=== PATIENT | female | born 1955 | race Caucasian/White ===

== ENCOUNTER 2016-11-21 12:29 | Inpatient (IN) | payer MEDICARE, MEDICAID ==
[~2016-11-21] VITALS: Ht 162.6 cm; Wt 78.5 kg
[~2016-11-21 12:29] MED LIST: AMLO5TAB4 PO; ARIP5TAB4 PO; ASPI81TA2 PO; CARV6.25 PO; DICL25TA10 PO; FERR325T6 PO; FOLI1TAB16 PO; GABA100C PO; HYDR-3326 PO; LISI-657 PO; LORA-258 PO; SERT50TA PO; SIMV20TA2 PO; ZOLP10TA2 PO
--- NOTE | 2016-11-21 12:31 | NUR ---
CALLED IN THE WAITING ROOM, PATIENT IS NOT AROUND.
--- NOTE | 2016-11-21 12:34 | NUR ---
PT CALLED, NO ANSWER
--- NOTE | 2016-11-21 12:42 | NUR ---
CALLED AGAIN; NO ANSWER.
--- NOTE | 2016-11-21 13:10 | NUR ---
PT BIB SELF C/O CHRONIC LOW BACK PAIN, WORSE TODAY, AND SI WITHOUT A PLAN. DENIES HI. RESP EVEN UNLABORED. SKIN WARM NONDIAPHORETIC. AMBULATORY WITH WALKER, WHICH IS BASELINE. CONTRACTS FOR SAFETY. IN ER BED 11.
[2016-11-21 13:49] LABS: CALCIUM, SERUM 9.2 mg/dL (8.5-10.1); CREATININE 0.8 mg/dL (0.6-1.3); POTASSIUM 4.3 mmol/L (3.5-5.1)
--- NOTE | 2016-11-21 13:51 | NUR ---
PT AT XRAY
[2016-11-21 14:08] LABS: BASOPHILS # (AUTO) 0.1 /CMM (0.0-0.2); EOSINOPHILS # (AUTO) 0.3 /CMM (0.0-0.7); EOSINOPHILS % (AUTO) 3.9 % (0.0-6.0); HEMATOCRIT 34 % (33-45); HEMOGLOBIN 11.4 g/dL (11.5-14.8); LYMPHOCYTES # (AUTO) 2.4 /CMM (0.8-4.8); LYMPHOCYTES % (AUTO) 29.4 % (20.0-44.0); MEAN CORPUSCULAR HEMOGLOBIN 33 PG (26.0-33.0); MEAN CORPUSCULAR HGB CONC 34 g/dl (31.0-36.0); MEAN CORPUSCULAR VOLUME 96 fL (82-100); MONOCYTES # (AUTO) 0.3 /CMM (0.1-1.30); MONOCYTES % (AUTO) 3.8 % (2.0-12.0); NEUTROPHILS % (AUTO) 61.9 % (43.0-81.0); PLATELET COUNT (AUTO) 260 /CMM (150-450); RDW COEFFICIENT OF VARIATION 13.6 (11.5-15.0); RED BLOOD CELL COUNT(AUTO) 3.51 MIL/uL (4.0-5.2)
[2016-11-21] MEDS ORDERED: HYDROCODONE/APAP 5/325MG 1 EACH TABLET ONE (14:19)
[2016-11-21] MEDS ORDERED: HYDROCODONE/APAP 5/325MG 1 EACH TABLET PO ONE (14:30)
--- NOTE | 2016-11-21 14:30 | NUR ---
PT SAT AND BEDPAN AND REPORTS THAT SHE URINATED; NO PEE IN BEDPAN. PER MD, PERFORM IN AND OUT CATH FOR URINE.
[2016-11-21 14:50] LABS: APPEARANCE,URINE Clear (CLEAR); BILIRUBIN,URINE Negative (NEGATIVE); BLOOD, URINE Trace-intact Ery/uL (NEGATIVE); COLOR,URINE Yellow (YELLOW); KETONES,URINE Trace (NEGATIVE); LEUKOCYTE ESTERASE ,URINE Moderate (NEGATIVE); NITRITE, URINE Positive (NEGATIVE); PROTEIN,URINE 30 mg/dl (NEGATIVE); UGLUCOSE Negative (NEGATIVE)
[2016-11-21 14:57] LABS: ADD URINE CULTURE YES; BACTERIA,URINE 1+ /HPF (None Seen); SQUAMOUS EPITHELIAL CELL,UR Few /HPF (None Seen); URINE AMORPHOUS PHOSPHATES Few /HPF (None Seen)
--- NOTE | 2016-11-21 15:21 | NUR ---
ART CALLED FOR PSYCH EVAL. SON AT BEDSIDE.
[2016-11-21] MEDS ORDERED: CIPROFLOXACIN HCL 250 MG TABLET PO ONE (15:30)
--- NOTE | 2016-11-21 16:22 | NUR ---
ART AT BEDSIDE
[2016-11-21] MEDS ORDERED: CIPROFLOXACIN HCL 500 MG TABLET ONE (16:31)
[2016-11-21] MEDS ORDERED: LORAZEPAM 1 MG TABLET ONE (18:34)
--- NOTE | 2016-11-21 18:40 | NUR ---
PT CONTINUES TO C/O ANXIETYY. ORDER FOR 1MG ATIVAN PO RECEIVED AND ADMINISTERED. NAD NOTED. VSS.
[2016-11-21] MEDS ORDERED: LORAZEPAM 1 MG TABLET PO ONE (19:00)
[2016-11-21] MEDS ORDERED: METF500T4 PO (19:06)
[2016-11-21] MEDS ORDERED: FAMO20TA8 PO (19:06)
[2016-11-21] MEDS ORDERED: QUET200T PO (19:06)
--- NOTE | 2016-11-21 19:09 | NUR ---
PT NOW RESTING CALMLY IN BED. ALL NEEDS ATTENDED TO.
--- NOTE | 2016-11-21 19:48 | NUR ---
REPORT GIVEN TO JULIANNA RN FOR ADMISSION
--- NOTE | 2016-11-21 20:13 | NUR ---
PT TRANSPORTED TO 218 IN STABLE CONDITION
--- NOTE | 2016-11-21 20:15 | NUR ---
[employer] ADVISOR NOTES: ADMITTED A 61 YO FEMALE FROM HOME ON VOLUNTARY HOLD. PATIENT CAME FROM [facility]. PER REPORT GIVEN BY JOSEPHINE FAIRCHILD PATIENT HAS BEEN HAVING CHRONIC LOWER BACK PAIN AND WANTING TO KILL HERSELF. THE PATIENT HOWEVER DOES NOT HAVE ANY SPECIFIC PLAN OF HURTING HERSELF. PATIENT USHERED TO HER BED. BELONGINGS AND CONTRABAND CHECKED. SHE WAS THEN ORIENTED TO ROOM, UNIT, STAFF, POLICIES, CARE PLAN AND DOCTORS. UPON INITIAL ASSESSMENT, PATIENT IS ALERT AND ORIENTED X3-4. SHE APPEARS DISHEVELED, DEPRESSED, ANXIOUS, UNKEMPT, ATTENTION SEEKING BUT CALM AND COOPERATIVE DURING THE ADMISSION PROCESS. PER PATIENT SHE WAS ADMITTED AT A [facility] AND WAS LATER MOVED HERE IN [place]. SHE INFORMS THE NURSE SOME OF HER MEDICAL HISTORY. SHE CLAIMED THAT SHE HAS A PACEMAKER ON THE LEFT UPPER CHEST WALL, THAT SHE'S DIABETIC, THAT SHE HAD SURGERY A COUPLE OF YEARS AGO-CHOLECYSTECTOMY. MEDICAL PAPERS SHOWED THAT PATIENT HAS THE FOLLOWING HISTORY- HYPERLIPIDEMIA, TYPE 2 DM, ESSENTIAL HYPERTENSION, PRESENCE OF CARDIAC PACEMAKER. PSYCHE- BIPOLAR DISORDER WITH PSYCHOTIC FEATURES. PATIENT CHANGED INTO HOSPITAL GOWN. FULL SKIN AND BODY ASSESSMENT DONE WITH CHEKO HERRERA. PICTURES TAKEN AND PLACED IN THE CHART. WOUND CONSULT TRIGGERED FOR HER RASHES ON BUTTOCKS AND THIGHS AREA. Q15 MIN CHECKS INITIATED PER UNIT PROTOCOL. CARE PLAN INITIATED SPECIFIC FOR HER NEEDS. ACCUCHECK DONE 150 MG/DL. DR. GONG INFORMED OF THE SAID ADMISSION AND FOR MED RECON, HE CAME TO THE UNIT TO ASSESS THE PATIENT. DR. SEBASTIAN ALSO INFORMED OF THE SAID ADMISSION. PATIENT PROVIDED WITH SNACKS, ORAL FLUIDS TOLERATED. TYLENOL 650MG GIVEN ORALLY FOR COMPLAINS OF LOWER BACK PAIN 11/04. PATIENT ASKED FOR NORCO MEDICATION AND DILAUDID, EXPLAINED TO PATIENT THAT THE DOCTOR WILL HAVE TO ASSESS HER NEEDS FOR THESE MEDICATIONS FIRST- SHE THEN AGREED. PATIENT DENIES ANY SUICIDAL THOUGHTS OR PLANS THIS TIME. SAFETY AND FALL PRECAUTIONS OBSERVED ON THIS PATIENT. WILL ENDORSE PATIENT TO DAY SHIFT NURSE.
[2016-11-21] MEDS ORDERED: MAGNESIUM HYDROXIDE 30 ML UDC PO PRN (20:30)
[2016-11-21 20:43] LABS: CHOLESTEROL 189 mg/dL (<200); HDL CHOLESTEROL 44 mg/dL (40-60); LDL 111 mg/dL (0-99); TRIGLYCERIDES 307 mg/dL (30-150)
[2016-11-21] MEDS: ACETAMINOPHEN 325 MG TABLET PO PRN (21:32)
[2016-11-21 21:42] VITALS: BP 95/44
[2016-11-21 23:30] VITALS: BP 110/57
[2016-11-21] MEDS: clonazePAM 0.5 MG TABLET PO PRN (23:43)
[2016-11-21] MEDS: MAG HYDROX/AL HYDROX/SIMETH 30 ML UDC PO PRN (23:47)
[2016-11-22] MEDS: TEMAZEPAM 15 MG CAPSULE PO PRN ×2 (00:38→23:03)
[2016-11-22] MEDS ORDERED: DEXTROSE 50%-WATER 50 ML DISP.SYRIN IV PRN (02:30)
[2016-11-22] MEDS: clonazePAM 0.5 MG TABLET PO PRN ×3 (06:19→17:37)
--- NOTE | 2016-11-22 06:19 | NUR ---
PATIENT COMPLAINED OF BEING ANXIOUS, SHE STARTED TO BE CALLING OUT FOR THE NURSES ATTENTION. SHE ASKED FOR KLONOPIN- GIVEN 0.5 MG GIVEN ORDERED. WILL CONTINUE TO MONITOR PATIENT. WILL ENDORSE TO DAY SHIFT NURSE.
[2016-11-22] MEDS: BLOOD SUGAR DIAGNOSTIC 1 EACH STRIP VI SCH ×4 (07:30→21:29)
[2016-11-22 07:46] LABS: CREATININE 0.7 mg/dL (0.6-1.3)
[2016-11-22 08:00] VITALS: BP 123/63
--- NOTE | 2016-11-22 08:45 | NUR ---
[id number]: BLOOD SUGAR IS 297 MG/DL AND REFUSED REGULAR INSULIN
[2016-11-22] MEDS: GABAPENTIN 100 MG CAPSULE PO SCH ×3 (08:47→17:38)
[2016-11-22] MEDS: ASPIRIN 81 MG TAB.CHEW PO SCH (08:47)
[2016-11-22] MEDS: METFORMIN 500 MG TABLET PO SCH ×2 (08:47→17:38)
[2016-11-22] MEDS: CIPROFLOXACIN HCL 250 MG TABLET PO SCH ×2 (08:48→20:16)
[2016-11-22] MEDS: FAMOTIDINE (20 MG) 20 MG TABLET PO SCH ×2 (08:48→17:38)
[2016-11-22] MEDS: SIMVASTATIN 20 MG TABLET PO SCH (08:48)
[2016-11-22] MEDS: ACETAMINOPHEN 325 MG TABLET PO PRN (08:50)
[2016-11-22] MEDS: Z GUARD REMEDY 2 OZ OINT TP SCH ×2 (10:00→18:07)
[2016-11-22] MEDS ORDERED: Z GUARD REMEDY 2 OZ OINT TP PRN (10:00)
--- NOTE | 2016-11-22 10:07 | NUR ---
WOUND CARE CONSULT: PATIENT SEEN AND SKIN ASSESSMENT DONE. PATIENT ALERT, ABLE TO WALK A FEW STEPS DUE TO C/O BACK PAIN, INDEPENDENT WITH BED MOBILITY HOWEVER NEEDS MINIMUM ASSIST PATIENT TENDS TO LAY ON HER RIGHT SIDE, URGE INCONTINENCE, MAURICE 15. SEE TODAY'S SKIN ASSESSMENT IN PCS ALONG WITH RECOMMENDATIONS. RECOMMEND MOISTURE PROTECTION WITH Z GUARD ORDERED, ASSIST PATIENT IN TURNING AND REPOSITIONING. ALL DISCUSSED WITH NURSING STAFF. MD IN AGREEMENT WITH PLAN OF CARE. Addendum: 11/22/16 at 1010 by ISHAAN SUTHERLAND WNDNU Amended: Links added.
--- NOTE | 2016-11-22 11:35 | NUR ---
[id number]: GAVE KLONOPIN 0.5 MG PO DUE TO ANXIETY UPON PT REQUEST AND WILL CONTINUE TO MONITOR FOR EFFECTIVENESS OF MEDICATION
[2016-11-22] MEDS: CLOTRIMAZOLE 1% 15 GM TUBE TP SCH ×2 (11:36→18:07)
[2016-11-22] MEDS: NEOMY SULF/BACITRAC ZN/POLY 15 GM TUBE TP SCH (11:36)
[2016-11-22] MEDS: INSULIN REGULAR, HUMAN 100 UNIT/ML 3 ML VIAL SQ PRN ×2 (11:41→17:43)
--- NOTE | 2016-11-22 11:41 | NUR ---
[id number]: BLOOD SUGAR IS 187 MG/DL AND GAVE 3 UNITS OF REGULAR INSULIN
[2016-11-22] MEDS: DULOXETINE HCL 30 MG CAPSULE.DR PO SCH (13:57)
[2016-11-22] MEDS: HYDROCODONE/APAP 5/325MG 1 EACH TABLET PO PRN ×3 (13:59→23:35)
--- NOTE | 2016-11-22 14:00 | NUR ---
[id number]: NOTIFIED DR. MUNOZ ABOUT EKG RESULTS. NO NEW ORDER GIVEN AT THIS TIME
[2016-11-22 16:00] VITALS: BP_SYST 121; BP_SYST 131; BP_DIAS 57; BP_DIAS 64
--- NOTE | 2016-11-22 16:29 | NUR ---
Initial Discharge Note: Patient was living with her son at [address] [address], [place] [id number] . SW spoke with patient's son Surjit Brooks who stated that he wanted her to be placed at [facility] and [address] [address] . SW will follow-up with the facility to confirm if patient can return to the facility. SW will help form a safe and proper discharge. For smoking cessation, patient will be referred to the [employer] or [employer] [facility] [id number].
[2016-11-22] MEDS ORDERED: CIPROFLOXACIN HCL 250 MG TABLET PO SCH (17:00)
--- NOTE | 2016-11-22 17:43 | NUR ---
[id number]: BLOOD SUGAR IS 199 MG/DL AND GAVE 3 UNITS OF REGULAR INSULIN
--- NOTE | 2016-11-22 19:25 | NUR ---
GPS/RN NOTE: C/O ACHY BACK PAIN 7/10 ON PAIN SCALE, NORCO TAB 5/325 MG 1 PO GIVEN.
[2016-11-22] MEDS: QUETIAPINE FUMARATE 100 MG TABLET PO SCH (20:22)
[2016-11-22 20:29] VITALS: BP 116/60
[2016-11-22] MEDS ORDERED: MIRTAZAPINE 15 MG TABLET PO SCH (22:00)
--- NOTE | 2016-11-22 23:04 | NUR ---
GPS/RN NOTE: C/O INSOMNIA, TEMAZEPAM 15 MG CAP 1 PO GIVEN.
--- NOTE | 2016-11-22 23:36 | NUR ---
gps/rn note: NORCO 5/325 MG TAB 1 PO GIVEN FOR HER ACHY BACK 6/10 ON PAIN SCALE.
[2016-11-23] MEDS: clonazePAM 0.5 MG TABLET PO PRN ×4 (02:33→23:41)
--- NOTE | 2016-11-23 02:34 | NUR ---
GPS/RN NOTE: PATIENT C/O ANXIETY, KLONOPIN 0.5 MG TAB 1 PO GIVEN.
[2016-11-23] MEDS: CLOTRIMAZOLE 1% 15 GM TUBE TP SCH ×2 (06:00→17:00)
[2016-11-23] MEDS: Z GUARD REMEDY 2 OZ OINT TP SCH ×2 (06:01→17:00)
[2016-11-23] MEDS: HYDROCODONE/APAP 5/325MG 1 EACH TABLET PO PRN ×4 (06:03→21:50)
--- NOTE | 2016-11-23 06:04 | NUR ---
GPS/RN NOTE: PATIENT CLAIMED THAT HER BACK IS HURTING AGAIN, 7/10 ON PAIN SCALE, NORCO 5/325 MG TAB 1 PO GIVEN.
--- NOTE | 2016-11-23 08:02 | NUR ---
[id number]: BLOOD SUGAR IS 119 MG/DL AND NO INSULIN REQUIRED AT THIS TIME.
[2016-11-23] MEDS: BLOOD SUGAR DIAGNOSTIC 1 EACH STRIP VI SCH ×4 (08:04→21:51)
[2016-11-23] MEDS: METFORMIN 500 MG TABLET PO SCH ×2 (08:05→16:23)
[2016-11-23] MEDS: DULOXETINE HCL 30 MG CAPSULE.DR PO SCH (08:05)
[2016-11-23] MEDS: CIPROFLOXACIN HCL 250 MG TABLET PO SCH (08:05)
[2016-11-23] MEDS: ASPIRIN 81 MG TAB.CHEW PO SCH (08:05)
[2016-11-23] MEDS: FAMOTIDINE (20 MG) 20 MG TABLET PO SCH ×2 (08:05→16:23)
[2016-11-23] MEDS: GABAPENTIN 100 MG CAPSULE PO SCH ×3 (08:05→16:23)
[2016-11-23] MEDS: QUETIAPINE FUMARATE 100 MG TABLET PO SCH ×2 (08:06→16:24)
[2016-11-23] MEDS: SIMVASTATIN 20 MG TABLET PO SCH (08:06)
[2016-11-23] MEDS: NEOMY SULF/BACITRAC ZN/POLY 15 GM TUBE TP SCH (08:09)
--- NOTE | 2016-11-23 08:34 | NUR ---
[id number]: GAVE KLONOPIN 0.5 MG PO DUE TO ANXIETY UPON PT REQUEST AND WILL CONTINUE TO MONITOR FOR EFFECTIVENESS OF MEDICATION
[2016-11-23 08:46] VITALS: BP 120/66
--- NOTE | 2016-11-23 10:10 | NUR ---
Psychosocial assessment was reviewed and I concur with the information provided. No changes are necessary. Eren Alford, [employer]IVER [id number] Addendum: 11/23/16 at 1011 by EREN ALFORD SW Amended: Links added.
--- NOTE | 2016-11-23 11:10 | NUR ---
[id number]: GAVE NORCO 5-325 MG PO DUE TO LOWER BACK PAIN 04/06 UPON PT REQUEST AND WILL CONTINUE TO MONITOR FOR EFFECTIVENESS OF MEDICATION
[2016-11-23] MEDS: INSULIN REGULAR, HUMAN 100 UNIT/ML 3 ML VIAL SQ PRN (11:44)
--- NOTE | 2016-11-23 11:44 | NUR ---
[id number]: BLOOD SUGAR IS 150 MG/D AND GAVE 2 UNITS OF REGULAR INSULIN
--- NOTE | 2016-11-23 14:08 | NUR ---
[id number]: GAVE KLONOPIN 0.5 MG PO DUE TO ANXIETY UPON PT REQUEST AND WILL CONTINUE TO MONITOR FOR EFFECTIVENESS OF MEDICATION
[2016-11-23 16:00] VITALS: BP 102/57
--- NOTE | 2016-11-23 16:24 | NUR ---
[id number]: GAVE NORCO 5-325 MG PO DUE TO LOWER BACK PAIN 04/06 UPON PT REQUEST AND WILL CONTINUE TO MONITOR FOR EFFECTIVENESS OF MEDICATION
--- NOTE | 2016-11-23 16:49 | NUR ---
[id number]: BLOOD SUGAR IS 112 MG/DL AND NO INSULIN REQUIRED AT THIS TIME
--- NOTE | 2016-11-23 19:30 | NUR ---
GPS RN NOTE, RECEIVED PATIENT AWAKE AND IN BED, NO S/S OR COMPLAINTS OF PAIN AT THIS TIME. PATIENT IS DISPLAYING NO S/S OF APPARENT DISTRESS AT THIS TIME. PATIENT BREATHING IS UNLABORED WITH EQUAL RISE AND FALL OF THE CHEST. PATIENT IS ALERT AND ORIENTED X 4 ON ROOM AIR WITH A SPO2 95%. PATIENT COMPLIANT WITH MEDICATIONS, DEPRESSED, DISORGANIZED, AND NEEDS REORIENTATION. PATIENT DENIES SUICIDE AND HOMICIDAL IDEATIONS AT THIS TIME. PATIENT ASSISTED WITH TURNING AND REPOSITIONING Q2HR AND PRN FOR COMFORT AND CIRCULATION. PATIENT HAS NO NEEDS AT THIS TIME. PATIENT EDUCATED ON THE USE OF THE CALL RAMOS. PATIENT BED SIDE RAILS UP X2 FOR SAFETY, BED IS LOCKED AND LOW WILL CONTINUE TO MONITOR AND MAINTAIN SAFETY.
[2016-11-23 20:51] VITALS: BP 106/54
--- NOTE | 2016-11-23 21:50 | NUR ---
GPS RN NOTE, PATIENT HAS A COMPLAINT OF LOWER BACK PAIN AT 5 OUT 10 ON THE PAIN SCALE AND WOULD LIKE PAIN MEDICATION AT THIS TIME. PATIENT VITAL SIGNS ARE STABLE. GAVE NORCO 5-325 1 TAB PO Q4HR PRN ORDERED. WILL REASSESS PAIN AND I WILL CONTINUE TO MONITOR THIS PATIENT.
[2016-11-23] MEDS: NITROFURANTOIN/NITROFURAN MAC 100 MG CAPSULE PO SCH (21:51)
--- NOTE | 2016-11-23 21:51 | NUR ---
GPS RN NOTE, PERFORMED ACCU-CHECK ON PATIENT WITH A BLOOD SUGAR RESULT OF 135 GAVE 2 UNITES OF REGULAR INSULIN PER SLIDING SCALE. WILL CONTINUE TO MONITOR THIS PATIENT.
[2016-11-23] MEDS: *INSULIN REGULAR(HUMULIN R)HUM 100 UNIT/ML VIAL SQ PRN (21:59)
--- NOTE | 2016-11-23 23:41 | NUR ---
GPS RN NOTE, PATIENT HAS A COMPLAINT OF FEELING ANXIOUS AND WOULD LIKE MEDICATION AT THIS TIME. PATIENT VITAL SIGNS ARE STABLE. GAVE KLONOPIN 0.5MG PO Q4HR PRN ORDERED. WILL REASSESS FOR ANXIETY AND I WILL CONTINUE TO MONITOR THIS PATIENT.
[2016-11-24] MEDS: HYDROCODONE/APAP 5/325MG 1 EACH TABLET PO PRN ×5 (01:53→20:17)
[2016-11-24] MEDS: ACETAMINOPHEN 325 MG TABLET PO PRN (03:41)
--- NOTE | 2016-11-24 03:41 | NUR ---
GPS RN NOTE, PATIENT HAS A COMPLAINT OF LOWER BACK PAIN AT 3 OUT 10 ON THE PAIN SCALE AND WOULD LIKE PAIN MEDICATION AT THIS TIME. PATIENT VITAL SIGNS ARE STABLE. GAVE TYLENOL 650 MG PO Q6HR PRN ORDERED. WILL REASSESS PAIN AND I WILL CONTINUE TO MONITOR THIS PATIENT.
[2016-11-24] MEDS: clonazePAM 0.5 MG TABLET PO PRN ×2 (05:38→16:57)
[2016-11-24] MEDS: MAG HYDROX/AL HYDROX/SIMETH 30 ML UDC PO PRN (05:47)
--- NOTE | 2016-11-24 05:47 | NUR ---
GPS RN NOTE, PATIENT HAS A COMPLAINT OF INDIGESTION AND WOULD LIKE MEDICATION AT THIS TIME. GAVE MAALOX 30ML 1 UNIT DOSE PO Q4HR PRN ORDERED. WILL CONTINUE TO MONITOR THIS PATIENT.
[2016-11-24] MEDS: Z GUARD REMEDY 2 OZ OINT TP SCH ×2 (06:18→17:00)
[2016-11-24] MEDS: CLOTRIMAZOLE 1% 15 GM TUBE TP SCH ×2 (06:18→17:00)
--- NOTE | 2016-11-24 08:00 | NUR ---
GPS RN NOTE, RECEIVED PATIENT AWAKE AND IN BED, NO S/S OR COMPLAINTS OF PAIN AT THIS TIME. PATIENT IS DISPLAYING NO S/S OF APPARENT DISTRESS AT THIS TIME. PATIENT BREATHING IS UNLABORED . PATIENT IS ALERT AND ORIENTED X 4 ON ROOM AIR WITH A SPO2 99%. PATIENT COMPLIANT WITH MEDICATIONS, DEPRESSED, DISORGANIZED, AND NEEDS REORIENTATION. PATIENT DENIES SUICIDE AND HOMICIDAL IDEATIONS AT THIS TIME. PATIENT HAS NO NEEDS AT THIS TIME. PATIENT EDUCATED ON THE USE OF THE CALL RAMOS. PATIENT BED SIDE RAILS UP X2 FOR SAFETY, BED IS LOCKED AND LOW WILL CONTINUE TO MONITOR AND MAINTAIN SAFETY.
[2016-11-24 08:09] VITALS: BP 127/73
[2016-11-24] MEDS: BLOOD SUGAR DIAGNOSTIC 1 EACH STRIP VI SCH ×4 (08:20→21:42)
[2016-11-24] MEDS: GABAPENTIN 100 MG CAPSULE PO SCH ×3 (08:21→16:37)
[2016-11-24] MEDS: SIMVASTATIN 20 MG TABLET PO SCH (08:21)
[2016-11-24] MEDS: ASPIRIN 81 MG TAB.CHEW PO SCH (08:21)
[2016-11-24] MEDS: METFORMIN 500 MG TABLET PO SCH ×2 (08:21→16:37)
[2016-11-24] MEDS: FAMOTIDINE (20 MG) 20 MG TABLET PO SCH ×2 (08:21→16:37)
[2016-11-24] MEDS: QUETIAPINE FUMARATE 100 MG TABLET PO SCH ×2 (08:22→16:37)
[2016-11-24] MEDS: NITROFURANTOIN/NITROFURAN MAC 100 MG CAPSULE PO SCH ×2 (08:22→20:16)
[2016-11-24] MEDS: DULOXETINE HCL 30 MG CAPSULE.DR PO SCH ×2 (08:22→16:36)
[2016-11-24] MEDS: NEOMY SULF/BACITRAC ZN/POLY 15 GM TUBE TP SCH (08:27)
--- NOTE | 2016-11-24 10:00 | NUR ---
GPS RN NOTES PATIENT SEEN AND PROVIDED THERAPY BY PT. ABLE TO AMBULATE WITH ASSISTANCE.
[2016-11-24 16:12] VITALS: BP 103/60
[2016-11-24] MEDS: INSULIN REGULAR, HUMAN 100 UNIT/ML 3 ML VIAL SQ PRN (16:45)
--- NOTE | 2016-11-24 18:03 | NUR ---
GPS RN NOTES PATIENT IN WHEELCHAIR IN ACTIVITY ROOM. ALL DUE MEDICATIONS GIVEN. ALL NEEDS MET. PATIENT COOPERATIVE THEW THE SHIFT. DENIES SUICIDAL IDEATION. WILL ENDORSE TO PM SHIFT JB.
--- NOTE | 2016-11-24 19:50 | NUR ---
RN OPENING NOTES RECEIVED REPORT FROM DAYSHIFT RN. FOUND Pt ASLEEP IN BED. NO S/S OF ACUTE DISTRESS OR SOB NOTED. REGULAR BREATHING, WITH EQUAL CHEST RISE AND FALL. Pt IS A/OX3, ADMITTED VOLUNTARY, USES WHEELCHAIR, VERBAL, ABLE TO MAKE NEEDS KNOWN. SAFETY MEASURES IN PLACE. BED LOW, LOCKED, HOB ELEVATED, SIDE RAILS UP. WILL CONTINUE TO MONITOR Pt THROUGHOUT THE NIGHT FOR SAFETY.
[2016-11-24 20:00] VITALS: BP 109/64
--- NOTE | 2016-11-24 21:23 | NUR ---
RN NOTES HS ACCUCHECK BG 106. NO INSULIN COVERAGE NEEDED AT THIS TIME.
[2016-11-24] MEDS: TEMAZEPAM 15 MG CAPSULE PO PRN (21:40)
[2016-11-25] MEDS: HYDROCODONE/APAP 5/325MG 1 EACH TABLET PO PRN ×5 (00:24→20:07)
[2016-11-25] MEDS: clonazePAM 0.5 MG TABLET PO PRN ×3 (03:42→17:47)
[2016-11-25] MEDS: CLOTRIMAZOLE 1% 15 GM TUBE TP SCH ×2 (06:50→17:21)
[2016-11-25] MEDS: Z GUARD REMEDY 2 OZ OINT TP SCH ×2 (06:51→17:21)
--- NOTE | 2016-11-25 07:05 | NUR ---
RN CLOSING NOTES NO SIGNIFICANT CHANGES DURING THE NIGHT. NO S/S OF ACUTE DISTRESS OR SOB NOTED DURING THE SHIFT. ALL NEEDS MET AND ATTENDED TO. SAFETY MEASURES CARRIED OUT. WILL ENDORSE TO DAYSHIFT RN FOR Pt's JB AND SAFETY.
[2016-11-25] MEDS: BLOOD SUGAR DIAGNOSTIC 1 EACH STRIP VI SCH ×4 (07:33→21:20)
[2016-11-25] MEDS: INSULIN REGULAR, HUMAN 100 UNIT/ML 3 ML VIAL SQ PRN ×3 (07:37→17:28)
[2016-11-25 08:00] VITALS: BP 100/62
[2016-11-25] MEDS: QUETIAPINE FUMARATE 100 MG TABLET PO SCH ×2 (08:38→17:20)
[2016-11-25] MEDS: GABAPENTIN 100 MG CAPSULE PO SCH ×3 (08:38→17:19)
[2016-11-25] MEDS: FAMOTIDINE (20 MG) 20 MG TABLET PO SCH ×2 (08:38→17:20)
[2016-11-25] MEDS: NITROFURANTOIN/NITROFURAN MAC 100 MG CAPSULE PO SCH ×2 (08:39→20:04)
[2016-11-25] MEDS: SIMVASTATIN 20 MG TABLET PO SCH (08:39)
[2016-11-25] MEDS: DULOXETINE HCL 30 MG CAPSULE.DR PO SCH ×2 (08:39→17:20)
[2016-11-25] MEDS: ASPIRIN 81 MG TAB.CHEW PO SCH (08:39)
[2016-11-25] MEDS: METFORMIN 500 MG TABLET PO SCH ×2 (08:39→17:20)
[2016-11-25] MEDS: NEOMY SULF/BACITRAC ZN/POLY 15 GM TUBE TP SCH (08:45)
--- NOTE | 2016-11-25 08:46 | NUR ---
GPS RN NOTES ADMINISTERED KLONOPIN 0.5 MG PO PRN FOR C/O ANXIETY, V/S STABLE CONTINUE TO MONITOR
[2016-11-25 16:04] VITALS: BP 107/60
--- NOTE | 2016-11-25 17:49 | NUR ---
GPS RN NOTES ADMINISTERED KLONOPIN 0.5 MG PO PRN FOR C/O ANXIETY, V/S STABLE CONTINUE TO MONITOR
[2016-11-25 20:00] VITALS: BP 121/69
--- NOTE | 2016-11-25 20:07 | NUR ---
GPS RN NOTES PATIENT COMPLAINING OF ACHING BACK PAIN 02/04. ADMINISTERED NORCO 5/325 1 TAB PO GIVEN PRN ORDERED. WILL CONTINUE TO MONITOR.
[2016-11-25] MEDS: *INSULIN REGULAR(HUMULIN R)HUM 100 UNIT/ML VIAL SQ PRN (21:20)
[2016-11-25] MEDS: TEMAZEPAM 15 MG CAPSULE PO PRN (21:31)
--- NOTE | 2016-11-25 21:34 | NUR ---
GPS RN NOTE RESTORIL 15MG GIVEN FOR INSOMNIA.
[2016-11-26] MEDS: HYDROCODONE/APAP 5/325MG 1 EACH TABLET PO PRN ×5 (00:10→20:51)
--- NOTE | 2016-11-26 00:10 | NUR ---
GPS RN NOTES PATIENT COMPLAINING OF ACHING BACK PAIN 03/06. ADMINISTERED NORCO 5/325 1 TAB PO GIVEN PRN ORDERED. WILL CONTINUE TO MONITOR.
[2016-11-26] MEDS: clonazePAM 0.5 MG TABLET PO PRN ×4 (02:43→23:52)
--- NOTE | 2016-11-26 02:43 | NUR ---
GPS RN NOTES ADMINISTERED KLONOPIN 0.5 MG PO PRN FOR ANXIETY, VSS. WILL CONTINUE TO MONITOR
--- NOTE | 2016-11-26 05:10 | NUR ---
GPS RN NOTES PATIENT COMPLAINING OF ACHING THROBBING BACK PAIN 03/06. ADMINISTERED NORCO 5/325 1 TAB PO GIVEN PRN ORDERED. WILL CONTINUE TO MONITOR.
[2016-11-26] MEDS: CLOTRIMAZOLE 1% 15 GM TUBE TP SCH ×2 (06:32→17:59)
[2016-11-26] MEDS: Z GUARD REMEDY 2 OZ OINT TP SCH ×2 (06:36→17:59)
[2016-11-26] MEDS: BLOOD SUGAR DIAGNOSTIC 1 EACH STRIP VI SCH ×4 (07:45→21:50)
[2016-11-26 07:56] VITALS: BP 129/68
[2016-11-26] MEDS: INSULIN REGULAR, HUMAN 100 UNIT/ML 3 ML VIAL SQ PRN (08:11)
[2016-11-26] MEDS: METFORMIN 500 MG TABLET PO SCH ×2 (09:08→16:12)
[2016-11-26] MEDS: QUETIAPINE FUMARATE 100 MG TABLET PO SCH ×2 (09:08→16:12)
[2016-11-26] MEDS: FAMOTIDINE (20 MG) 20 MG TABLET PO SCH ×2 (09:08→17:57)
[2016-11-26] MEDS: SIMVASTATIN 20 MG TABLET PO SCH (09:08)
[2016-11-26] MEDS: ASPIRIN 81 MG TAB.CHEW PO SCH (09:08)
[2016-11-26] MEDS: NITROFURANTOIN/NITROFURAN MAC 100 MG CAPSULE PO SCH ×2 (09:08→20:51)
[2016-11-26] MEDS: GABAPENTIN 100 MG CAPSULE PO SCH ×3 (09:08→16:13)
[2016-11-26] MEDS: DULOXETINE HCL 30 MG CAPSULE.DR PO SCH ×2 (09:08→16:12)
[2016-11-26] MEDS: NEOMY SULF/BACITRAC ZN/POLY 15 GM TUBE TP SCH (09:13)
--- NOTE | 2016-11-26 09:14 | NUR ---
GPS RN: PATIENT C/O ANXIETY, ASKING FOR KLONOPIN TO HELP HER CALM DOWN. ADMINISTERED KLONOPIN 0.5MG PO ORDERED. VS STABLE, CONTINUE TO MONITOR.
[2016-11-26 16:05] VITALS: BP 120/60
[2016-11-26 20:00] VITALS: BP 114/64
--- NOTE | 2016-11-26 20:52 | NUR ---
GPS/RN NOTE: WHEELED OUT TO THE NURSE'S STATION, STATED THAT HER BACK HURTS, 6/10 ON PAIN SCALE, NORCO TAB 1 PO 5/325 MG GIVEN.
[2016-11-26] MEDS: *INSULIN REGULAR(HUMULIN R)HUM 100 UNIT/ML VIAL SQ PRN ×2 (21:53→23:20)
--- NOTE | 2016-11-26 23:20 | NUR ---
GPS/RN NOTE: TRANSFERRED TO MED-SURG FOR CONTINUITY OF CARE. REPORT GIVEN TO JOSEPHINE MCNAMARA
--- NOTE | 2016-11-26 23:30 | NUR ---
GPS OVERFLOW RN NOTES: TRANSFERRED A 61 YO FEMALE PATIENT FROM GPS UNIT VIA WHEELCHAIR, AOX4, ON ROOM AIR, BREATHING EVEN AND UNLABORED. IN NO APPARENT DISTRESS. APPEARS CALM AT THIS TIME, BUT IS ASKING FOR HER PAIN MEDICINE FOR HER LOW BACK PAIN. DOES NOT VERBALIZE ANY PLAN OR IDEATION TO HARM SELF AT THIS TIME. REASSURED PATIENT AND EXPLAINED SCHEDULE OF PAIN MEDICATIONS. ORIENTED TO UNIT. PROVIDED FOR COMFORT AND SAFETY. WILL CONT TO MONITOR.
[2016-11-27] VITALS: BP 125/67
--- NOTE | 2016-11-27 00:10 | NUR ---
RN NOTES: PATIENT VERBALIZED FEELING OF NOT BEING ABLE TO RELAX, AND ASKED FOR CLONAZEPAM. PO CLONAZEPAM 0.5 MG GIVEN. PATIETN PLACED ON BED, SIDERAILS UP X 3, BED IN LOCKED AND LOWEST POSITION. WILL CONT TO MONITOR.
--- NOTE | 2016-11-27 02:10 | NUR ---
RN NOTES: PATIENT C/O PAIN OVER HER LOWER BACK SCALED AT 7/10. ADMINISTERED PRN NORCO 5-325 MG PO. WILL CONT TO MONITOR.
[2016-11-27] MEDS: HYDROCODONE/APAP 5/325MG 1 EACH TABLET PO PRN ×5 (02:15→20:06)
[2016-11-27] MEDS: Z GUARD REMEDY 2 OZ OINT TP SCH ×2 (06:18→17:02)
[2016-11-27] MEDS: CLOTRIMAZOLE 1% 15 GM TUBE TP SCH ×2 (06:18→17:02)
[2016-11-27] MEDS: BLOOD SUGAR DIAGNOSTIC 1 EACH STRIP VI SCH ×4 (06:31→22:05)
[2016-11-27] MEDS: INSULIN REGULAR, HUMAN 100 UNIT/ML 3 ML VIAL SQ PRN ×3 (06:32→16:58)
--- NOTE | 2016-11-27 06:47 | NUR ---
RN CLOSING NOTES: PATIENT IN BED, AOX4, ON ROOM AIR, BREATHING EVEN AND UNLABORED. PATIENT STATED THAT SHE HAS PAIN 7/10 OVER LOWER BACK, ADMINISTERED PRN NORCO 5-325 MG PO. DUE MEDS GIVEN. BLOOD SUGAR CHECKED AT 135 MG/DL, ADMINISTERED 2 UNITS REGULAR INSULIN. ADVISED ON DIABETIC DIET. NO ACUTE CHANGE IN CONDITION NOTED THROUGH SHIFT. WILL ENDORSE TO AM RN FOR JB.
--- NOTE | 2016-11-27 07:20 | NUR ---
RN CLOSING NOTES: PATIENT IN BED, AOX4, ON ROOM AIR, BREATHING EVEN AND UNLABORED. CONTINUED ON PAIN MANAGEMENT, DUE MEDS GIVEN. NO S/S OF HYPO/HYPERGLYCEMIA NOTED, ADVISED ON DIABETIC DIET. NO IV SITE MD AWARE, GPS OVERFLOW. WILL CONTINUE TO MONITOR AND ENDORSE TO NEXT SHIFT FOR JB Addendum: 11/27/16 at 1837 by FERMÍN HERNANDEZ RN RN NOTES CORRECTION PATIENT IN BED, AOX4, ON ROOM AIR, BREATHING EVEN AND UNLABORED. CONTINUED ON PAIN MANAGEMENT, DUE MEDS GIVEN. NO S/S OF HYPO/HYPERGLYCEMIA NOTED, ADVISED ON DIABETIC DIET. NO IV SITE MD AWARE, GPS OVERFLOW. WILL CONTINUE TO MONITOR
[2016-11-27 08:00] VITALS: BP 133/73
[2016-11-27] MEDS: FAMOTIDINE (20 MG) 20 MG TABLET PO SCH ×2 (08:01→16:54)
[2016-11-27] MEDS: DULOXETINE HCL 30 MG CAPSULE.DR PO SCH ×2 (08:01→16:54)
[2016-11-27] MEDS: clonazePAM 0.5 MG TABLET PO PRN ×4 (08:01→21:34)
[2016-11-27] MEDS: NITROFURANTOIN/NITROFURAN MAC 100 MG CAPSULE PO SCH ×2 (08:01→20:08)
[2016-11-27] MEDS: METFORMIN 500 MG TABLET PO SCH ×2 (08:01→16:54)
[2016-11-27] MEDS: ASPIRIN 81 MG TAB.CHEW PO SCH (08:01)
[2016-11-27] MEDS: SIMVASTATIN 20 MG TABLET PO SCH (08:01)
[2016-11-27] MEDS: QUETIAPINE FUMARATE 100 MG TABLET PO SCH ×2 (08:02→16:54)
[2016-11-27] MEDS: GABAPENTIN 100 MG CAPSULE PO SCH ×3 (08:02→16:54)
[2016-11-27] MEDS: NEOMY SULF/BACITRAC ZN/POLY 15 GM TUBE TP SCH (08:05)
--- NOTE | 2016-11-27 18:36 | NUR ---
RN CLOSING NOTES: PATIENT IN BED, AOX4, ON ROOM AIR, BREATHING EVEN AND UNLABORED. CONTINUED ON PAIN MANAGEMENT, DUE MEDS GIVEN. NO S/S OF HYPO/HYPERGLYCEMIA NOTED, ADVISED ON DIABETIC DIET. NO IV SITE MD AWARE, GPS OVERFLOW. WILL CONTINUE TO MONITOR AND ENDORSE TO NEXT SHIFT FOR JB
--- NOTE | 2016-11-27 19:27 | NUR ---
RN NOTE; RECEIVED PT IN BED AWAKE AND ALERT. BREATHING EVENLY. NOSOB. NO DISTRESS. SKIN WARM AND DRY TO TOUCH. NO BEHAVIORAL ISSUES NOTED AT THIS TIME. NEEDS ATTENDED. CALL LIGHT WITHIN REACH . WILL CONT TO MONITOR
[2016-11-27 20:00] VITALS: BP 102/55
--- NOTE | 2016-11-27 20:10 | NUR ---
NORCO GIVEN PER PT'S REQUEST FOR C/O ACUTE ON CHRONIC BACK PAIN. WILL CONT TO MONITOR
[2016-11-27] MEDS: *INSULIN REGULAR(HUMULIN R)HUM 100 UNIT/ML VIAL SQ PRN (21:33)
--- NOTE | 2016-11-27 21:35 | NUR ---
KLONOPIN GIVEN FOR ANXIETY EPISODE. WILL CONT TO MONITOR
[2016-11-28] MEDS: HYDROCODONE/APAP 5/325MG 1 EACH TABLET PO PRN ×3 (03:33→12:32)
[2016-11-28] MEDS: clonazePAM 0.5 MG TABLET PO PRN ×3 (03:36→12:32)
--- NOTE | 2016-11-28 03:38 | NUR ---
NORCO AND KLONOPIN GIVEN PER PT'S REQUEST FOR C/O LOWER BACK PAIN AND ANXIETY. WILL CONT TO MONITOR
--- NOTE | 2016-11-28 06:14 | NUR ---
RN NOTE; PT IN BED DOZING INTERMITTENTLY. BREATHING EVENLY. NO SOB. NO DISTRESS. NO ACUTE CHANGES DURING THE NIGHT. NO BEHAVIORAL OR PSYCH ISSUES. COMPLIANT W/ MEDICATIONS AND POC. PAIN MEDICATIONS GIVEN ORDERED PER PT'S REQUEST. NEEDS ATTENDED. BED LOW LOCKED. SRX2. CALL LIGHT WITHIN REACH. WILL CONT TO MONITOR AND WILL ENDORSE TO AM SHIFT FOR JB,
[2016-11-28] MEDS: BLOOD SUGAR DIAGNOSTIC 1 EACH STRIP VI SCH ×2 (06:36→12:32)
[2016-11-28] MEDS: CLOTRIMAZOLE 1% 15 GM TUBE TP SCH (06:37)
[2016-11-28] MEDS: Z GUARD REMEDY 2 OZ OINT TP SCH (06:37)
[2016-11-28] MEDS: INSULIN REGULAR, HUMAN 100 UNIT/ML 3 ML VIAL SQ PRN (06:40)
[2016-11-28 08:00] VITALS: BP 114/69
--- NOTE | 2016-11-28 08:00 | NUR ---
MS 2 RN AM NOTES RECEIVED PT IN BED AWAKE AND ALERT. BREATHING EVENLY. NO SOB. NO DISTRESS. SKIN WARM AND DRY TO TOUCH. NO BEHAVIORAL ISSUES NOTED AT THIS TIME.GOES TO THE COMMODE ON HER OWN. C/O BACK PAIN.PAIN MGT DONE WITH NORCO NEEDED WITH EFFECTIVE RESULT.NEEDS ATTENDED. CALL LIGHT WITHIN REACH . WILL CONT TO MONITOR
[2016-11-28] MEDS ORDERED: NICOTINE PATCH (14MG) 14 MG PATCH.TD24 TD SCH (09:00)
[2016-11-28] MEDS: SIMVASTATIN 20 MG TABLET PO SCH (09:15)
[2016-11-28] MEDS: ASPIRIN 81 MG TAB.CHEW PO SCH (09:15)
[2016-11-28] MEDS: DULOXETINE HCL 30 MG CAPSULE.DR PO SCH (09:15)
[2016-11-28] MEDS: METFORMIN 500 MG TABLET PO SCH (09:16)
[2016-11-28] MEDS: NITROFURANTOIN/NITROFURAN MAC 100 MG CAPSULE PO SCH (09:16)
[2016-11-28] MEDS: GABAPENTIN 100 MG CAPSULE PO SCH ×2 (09:17→12:35)
[2016-11-28] MEDS: QUETIAPINE FUMARATE 100 MG TABLET PO SCH (09:17)
[2016-11-28] MEDS: FAMOTIDINE (20 MG) 20 MG TABLET PO SCH (10:13)
[2016-11-28] MEDS: NEOMY SULF/BACITRAC ZN/POLY 15 GM TUBE TP SCH (10:16)
--- NOTE | 2016-11-28 13:23 | NUR ---
MS -2/ RN NOTES- CLOSING DISCHARGED PT. IN STABLE CONDITION, AND VITAL SIGNS. A&OX3, BREATHING IS UNLABORED AND EVEN, NO SIGNS OF DISTRESS. PT. WAS PROVIDED DISCHARGE INSTRUCTIONS. REPORT CALLED INTO [facility]. AMBULANCE TRANSFERRED PT. TO [facility].
--- NOTE | 2016-11-28 14:00 | NUR ---
Discharge Note: Patient was discharged to [facility] [address] [place] [address] . Via med response. Patient's son Surjit Brooks was notified. Patient denied S/H ideations and A/V hallucinations upon discharge. Facilitated info to IDT team who are in agreement with discharge arrangement. The multidisciplinary exitcare form was done, printed, signed, and given to the patient.
== END 2016-11-28 13:30 | DRG 885 ==
LOC: ER 12:32 → GPS 19:35 → GPSOV2 11-26 23:16
PROVIDERS: ADMIT Psychiatry & Neurology Psychiatry; ATTEND Internal Medicine
DX: F33.3 Major depressive disorder, recurrent, severe with psychotic symptoms (principal); N39.0 Urinary tract infection, site not specified; R45.851 Suicidal ideations; E11.40 Type 2 diabetes mellitus with diabetic neuropathy, unspecified; E78.5 Hyperlipidemia, unspecified; K21.9 Gastro-esophageal reflux disease without esophagitis; B96.20 Unspecified Escherichia coli [E. coli] as the cause of diseases classified elsewhere; F41.9 Anxiety disorder, unspecified; Z91.14 Patient's other noncompliance with medication regimen; Z95.0 Presence of cardiac pacemaker; G89.29 Other chronic pain; B96.89 Other specified bacterial agents as the cause of diseases classified elsewhere; Z91.5 Personal history of self-harm
CPT/HCPCS: 36415; 72070-TC; 72110-TC; 80048-TC; 80061-TC; 81000-TC; 82565-TC; 82962-TC; 85025-TC; 87086-TC; 87186-TC; 97001-TC; 97116-TC; 97530-TC; A4606; J1815; Z7610